=== PATIENT | female | born 1940 | race Caucasian/White ===

== ENCOUNTER 2020-08-04 07:28 | Day surgery (SDC) | payer OTHER ==
[2020-07-30 12:22] LABS: BASOPHILS % (AUTO) 0.4 % (0.0-5.0); EOSINOPHILS % (AUTO) 1.8 % (0.0-8.0); HEMATOCRIT 31.7 % (36-48); LYMPHOCYTES % (AUTO) 25.9 % (21.0-51.0); MEAN CORPUSCULAR HGB CONC 30.9 g/dL (32.0-36.0); MEAN CORPUSCULAR VOLUME 90.6 fL (79-99); MONOCYTES % (AUTO) 6.4 % (3.0-13.0); NEUTROPHILS % (AUTO) 65.1 % (40.0-77.0); PLATELET COUNT (AUTO) 306 K/uL (130-400); RED CELL DISTRIBUTION WIDTH 16.3 % (11.0-15.5); WHITE BLOOD COUNT (AUTO) 7.8 K/uL (4.8-10.8)
[2020-07-30 12:54] LABS: ALBUMIN 2.2 g/dL (3.5-5.0); BILIRUBIN,TOTAL 0.3 mg/dL (0.2-1.0); CREATININE 0.8 mg/dL (0.5-1.5); POTASSIUM 3.8 mmol/L (3.5-5.1); TOTAL PROTEIN, SERUM 7.7 g/dL (6.0-8.3)
[2020-08-03 15:51] VITALS: BP 132/62
--- NOTE | 2020-08-03 16:20 | NUR ---
REPORT CALLED DR FLOR AND INFORMED HIM OF CBC RESULTS. NO NEW ORDERS AT THIS TIME.
[~2020-08-04] VITALS: Ht 157.5 cm; Wt 41.7 kg
[2020-08-04] VITALS (18 sets, daily range): BP systolic 109–157; BP diastolic 42–76
[~2020-08-04 07:28] MED LIST: ATOR20TA65 PO; DOXY100C40 PO; ESCI10TA54 PO; FOLIC ACID PO; LEVE500T19 PO; LEVO75TA10 PO; LIDOP TP; LORA10TA7 PO; MONT10TA26 PO; MULT-1367 PO; PANT40TA54 PO; POTA10CA44 PO; VITA100014 PO; VITAMIN B12 PO; [UNRECOGNIZED DRUG - OTHER] PO
[2020-08-04] MEDS ORDERED: SODIUM CHLORIDE 0.9% 1000ML 1,000 ML IV ONE (07:49)
[2020-08-04] MEDS ORDERED: TRAM1TAB PO (09:19)
[2020-08-04] MEDS ORDERED: SUCCINYLCHOLINE 200MG/10ML SYR ONE (12:39)
[2020-08-04] MEDS ORDERED: LIDOCAINE PF 2% 5ML ABBOJECT ONE (12:39)
[2020-08-04] MEDS ORDERED: PROPOFOL 10 MG/ML 20ML VIAL IV ONE (12:39)
[2020-08-04] MEDS ORDERED: FENTANYL CITRATE PF 50 MCG/1 ML 2ML VIAL ONE (12:39)
[2020-08-04] MEDS ORDERED: CEFAZOLIN SODIUM 1 GM VIAL ONE ×2 (13:13→13:17)
[2020-08-04] MEDS ORDERED: BUPIVACAINE/EPI/PF 0.5% 30ML VIAL IJ ONE (13:13)
[2020-08-04] MEDS ORDERED: METHYLENE BLUE 5 MG/ML AMP ONE (13:13)
[2020-08-04] MEDS ORDERED: GENTAMICIN SULFATE 80 MG/2 ML VIAL ONE (13:13)
[2020-08-04] MEDS ORDERED: LIDOCAINE 1%-EPI 1:100,000 20 ML VIAL IJ ONE (13:22)
[2020-08-04] MEDS ORDERED: ROPIVACAINE 0.5% 5MG/ML 30ML IJ ONE (14:05)
[2020-08-04] MEDS ORDERED: ROCURONIUM 10MG/1ML SYR 10 MG/ML ML ONE (14:11)
[2020-08-04] MEDS ORDERED: Q-PUMP 1 EACH MISC SCH (14:30)
[2020-08-04] MEDS ORDERED: GLYCOPYRROLATE 1 MG/5 ML SYRINGE ONE (16:01)
[2020-08-04] MEDS ORDERED: NEOSTIGMINE 5MG/5ML SYR IV ONE (16:01)
[2020-08-04] MEDS ORDERED: ONDANSETRON HCL 4 MG/2 ML VIAL ONE (16:02)
[2020-08-04] MEDS ORDERED: MEPERIDINE-PF 25 MG/ML SYG ONE (16:54)
--- NOTE | 2020-08-04 18:05 | NUR ---
DAY PT ARRIVAL PT ARRIVED TO ROOM , IN NO APPARENT DISTRESS, DRQAIN AND Q PUMP NOTED TO RIGHT HIP. FAMILY CALLED AND BROUGHT IN TO ROOM
[2020-08-04] MEDS ORDERED: ACETAMINOPHEN EXTRA STRENGTH 500 MG TABLET ONE (18:45)
--- NOTE | 2020-08-04 19:00 | NUR ---
PT TAKEN TO PRIVATE VEHICLE VIA WHEELCHAIR STATES REDUCTION IN PAIN, INSTRUCTIONS GIVEN TO FAMILY ON HIP DRAIN MAINTENANCE AND DRAINAGE. WOUND INSTRUCTIONS PER MD GIVEN .
[2020-08-04] MEDS ORDERED: ACETAMINOPHEN EXTRA STRENGTH 500 MG TABLET PO ONE (19:30)
== END 2020-08-04 19:00 | disposition home or self-care (01) ==
LOC: DAH 07:28
PROVIDERS: ATTEND Plastic Surgery
DX: L89.150 Pressure ulcer of sacral region, unstageable (principal); K21.9 Gastro-esophageal reflux disease without esophagitis; R62.7 Adult failure to thrive; E78.5 Hyperlipidemia, unspecified; E11.9 Type 2 diabetes mellitus without complications; Z79.82 Long term (current) use of aspirin; Z79.899 Other long term (current) drug therapy; Z87.891 Personal history of nicotine dependence; M19.90 Unspecified osteoarthritis, unspecified site; G40.909 Epilepsy, unspecified, not intractable, without status epilepticus; Z20.828 Contact with and (suspected) exposure to other viral communicable diseases
CPT/HCPCS: 15002; 15734; 15946; 36415; 80053; 82948; 85025; 93005; A4215; A4221; A4222; A4223; A4305; A4600; A4606; A4649 ×3; A4663; A6223; A6260; C1755; C9803; J0330; J0690 ×2; J1580; J2001; J2175; J2405; J2704; J2710; J3010; J3490 ×2; J7030; U0003; J2795; Q9968